=== PATIENT | female | born 1980 | race Caucasian/White ===

== ENCOUNTER 2019-12-26 17:35 | Emergency (ER) | payer OTHER ==
[~2019-12-26] VITALS: Ht 170.2 cm; Wt 86.0 kg
[~2019-12-26 17:35] MED LIST: BIRTH CONTROL PILL
--- NOTE | 2019-12-26 17:47 | PHYS DOC ---
Past History Past Medical History: Anxiety, Diabetes, Hypertension, Hypothyroid, Migraines, UTI, Other Past Surgical History: No Surgical History Alcohol Use: None Drug Use: None Adult General Chief Complaint Chief Complaint: NEURO SYMPTOMS/DEFICITS. .. " I ve been having problems... with this Lt. arm and neck.. numbness off and on the past week.. some what constant today.. now my whole hand seems numb..." HPI HPI Patient is a 39 year old female who presents with above hx and complaints of left arm numbness and weakness 1 week. Patient presents today with persistent constant feelings of numbness and weakness left arm. Patient states he's ever had a injury to her neck. Patient is right-hand dominant. Currently describes "like numbness from mid forearm into the entire hand. Patient does have a history of diabetes, hypertension, migraines, hypothyroidism, and anxiety. Patient states her migraines tend to be tension related. Patient states she's had somewhat of a tension headache all day. Patient did go an MRI in 2010 with no significant findings as per patient for similar presentations. Pt follows with Dr. Wakefield. Review of Systems Review of Systems Constitutional: Denies fever or chills [] Eyes: Denies change in visual acuity, redness, or eye pain [] HENT: Denies nasal congestion or sore throat []Enlarged thyroid. Respiratory: Denies cough or shortness of breath [] Cardiovascular: No additional information not addressed in HPI [] GI: Denies abdominal pain, nausea, vomiting, bloody stools or diarrhea [] : Denies dysuria or hematuria [] Musculoskeletal: Denies back pain or joint pain [] Integument: Denies rash or skin lesions [] Neurologic: Denies headache, focal weakness . Has complaints of Lt arm sensory changes [] . Endocrine: Denies polyuria or polydipsia [] All other systems were reviewed and found to be within normal limits, except as documented in this note. Family History Family History Non-contributory Current Medications Current Medications See Nursing for home meds. Allergies Allergies Allergies Coded Allergies Type Severity Reaction Last Updated Verified ciprofloxacin Adverse Reaction Intermediate Nausea and Vomiting 02/25/15 No lisinopril Adverse Reaction Intermediate Swelling 02/25/15 No Physical Exam Physical Exam Constitutional: no acute distress, non-toxic appearance. [] HENT: Normocephalic, atraumatic, bilateral external ears normal, oropharynx m oist, no oral exudates, nose normal. [] Eyes: PERRLA, EOMI, conjunctiva normal, no discharge. [] Neck: Normal range of motion, no tenderness, supple, no stridor. [] Cardiovascular:Heart rate regular rhythm, no murmur [] Lungs & Thorax: Bilateral breath sounds equal at apexes on auscultation [] Abdomen: Bowel sounds normal, soft, no tenderness, no masses, no pulsatile masses. [] Skin: Warm, dry, no erythema, no rash. [] Back: No tenderness, no CVA tenderness. [] Extremities: No tenderness, no cyanosis, no clubbing, ROM intact, no edema. [] Neurologic: Alert and oriented X 3, normal motor function, normal sensory function, Subjective complaints of Lt. hand numbness. (no focal reproducible deficits noted. )[]DTR + 2 patella and brachial. No drift. Distal Vibratory. NIHSS 1? Psychologic: Affect anxious, judgement normal, mood normal. [] EKG EKG I interpretation EKG shows a sinus rhythm at 75 beats per morning[] Radiology/Procedures Radiology/[place] [address] IMAGING REPORT Signed PATIENT: BELTRAN BRAUN ACCOUNT: [id number] : 1980 LOCATION: ER AGE: 39 SEX: F EXAM STATUS: REG ER ORD. PHYSICIAN: VEL SANDHU MD REASON: Stroke protocol, left sided head and neck pain radiating down arm PROCEDURE: CT HEAD AND CERVICAL SPINE WO STUDY: CT head and cervical spine without contrast INDICATION: Stroke protocol. Left-sided head and neck pain radiating down the arm. COMPARISON: CT head 02/25/2015 TECHNIQUE: Axial CT imaging through the head and cervical spine without the use of intravenous contrast. Sagittal and coronal reformats were obtained. One or more of the following individualized dose reduction techniques were utilized for this examination: 1. Automated exposure control 2. Adjustment of the mA and/or kV according to patient size 3. Use of iterative reconstruction technique. FINDINGS: CT head: No acute intracranial hemorrhage. No CT evidence for an acute cortical infarction. The deep mae nuclei are well delineated. No mass effect, midline shift or hydrocephalus. Unremarkable scalp and orbits. Intact calvarium. CT cervical spine: No acute fracture. Alignment is maintained across the vertebral bodies, facet joints and craniocervical junction. No significant bony encroachment on the central canal or neural foramina. Possible right thyroid lobe nodularity but no measurable nodule as well.. A few mildly prominent cervical chain lymph nodes are noted however these are more than likely reactive. No prevertebral edema. Unremarkable lung apices. IMPRESSION: CT head: 1. No acute intracranial abnormality by CT. No loss of mae-white matter differentiation to suggest an acute cortical infarction. CT cervical spine: 1. No acute osseous abnormality. No bony encroachment on the central canal or neural foramina. FOR INTERNAL CODING PURPOSES RESULT CODE: (C) The results of the study were discussed with Vel Sandhu by telephone on 12/26/2019 at 1840 hours. Electronically signed by: KEVIN RIVERA MD (12/26/2019 6:50 PM) [id number] DICTATED AND SIGNED BY: KEVIN RIVERA MD DATE: 12/26/191849 CC: VEL SANDHU MD; REA WAKEFIELD ~ [][place] [address] IMAGING REPORT Signed PATIENT: BELTRAN BRAUN ACCOUNT: [id number] : 1980 LOCATION: ER AGE: 39 SEX: F EXAM STATUS: REG ER ORD. PHYSICIAN: VEL SANDHU MD REASON: Palpitations, dyspnea PROCEDURE: CHEST PA & LATERAL Study: CHEST PA LATERAL Indication: Palpitations. Dyspnea. Comparison: 06/29/2014 Findings: Unremarkable lungs and cardiomediastinal silhouette. No free air seen under the diaphragm. Impression: No acute radiographic abnormality. Electronically signed by: KEVIN RIVERA MD (12/26/2019 6:54 PM) [id number] DICTATED AND SIGNED BY: KEVIN RIVERA MD DATE: 12/26/191853 CC: VEL SANDHU MD; REA WAKEFIELD ~ Course & Med Decision Making Course & Med Decision Making Pertinent Labs and Imaging studies reviewed. (See chart for details) Pt. to followup with primary. Take Tylenol and Ibuprofen for pain. Recommend pt. consider repeat MRI of neck. Must followup. Take a daily baby aspirin. Consider follow-up with neurology. Review elevated glucose and blood pressure with primary care. Wear clonidine patch until follow-up primary. Return if any concerns. Impression: 1. Suspect Cervical Neuralgia/ Neuritis 2. Elevated Glucose 283 3. Elevated CRP 5.1 4. Hypertension [] Dragon Disclaimer Dragon Disclaimer This electronic medical record was generated, in whole or in part, using a voice recognition dictation system. Departure Departure: Disposition: 01 HOME/RESIDENCE PRIOR TO ADM Condition: STABLE Referrals: REA WAKEFIELD (PCP) VEL SANDHU MD Dec 26, 2019 17:47
[2019-12-26] MEDS ORDERED: IV RINGERS SOLUTION,LACTATED 1,000 ML IV SCH (17:58)
--- NOTE | 2019-12-26 18:11 | EKG ---
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
[2019-12-26] MEDS ORDERED: LORazepam 1 MG TABLET PO ONE (18:15)
--- NOTE | 2019-12-26 18:53 | RAD ---
STUDY: CT head and cervical spine without contrast INDICATION: Stroke protocol. Left-sided head and neck pain radiating down the arm. COMPARISON: CT head 02/25/2015 TECHNIQUE: Axial CT imaging through the head and cervical spine without the use of intravenous contrast. Sagittal and coronal reformats were obtained. One or more of the following individualized dose reduction techniques were utilized for this examination: 1. Automated exposure control 2. Adjustment of the mA and/or kV according to patient size 3. Use of iterative reconstruction technique. FINDINGS: CT head: No acute intracranial hemorrhage. No CT evidence for an acute cortical infarction. The deep mae nuclei are well delineated. No mass effect, midline shift or hydrocephalus. Unremarkable scalp and orbits. Intact calvarium. CT cervical spine: No acute fracture. Alignment is maintained across the vertebral bodies, facet joints and craniocervical junction. No significant bony encroachment on the central canal or neural foramina. Possible right thyroid lobe nodularity but no measurable nodule as well.. A few mildly prominent cervical chain lymph nodes are noted however these are more than likely reactive. No prevertebral edema. Unremarkable lung apices. IMPRESSION: CT head: 1. No acute intracranial abnormality by CT. No loss of mae-white matter differentiation to suggest an acute cortical infarction. CT cervical spine: 1. No acute osseous abnormality. No bony encroachment on the central canal or neural foramina. FOR INTERNAL CODING PURPOSES RESULT CODE: (C) The results of the study were discussed with Vel Sandhu by telephone on 12/26/2019 at 1840 hours. Electronically signed by: KEVIN RIVERA MD (12/26/2019 6:50 PM) [id number]
--- NOTE | 2019-12-26 18:57 | RAD ---
Study: CHEST PA LATERAL Indication: Palpitations. Dyspnea. Comparison: 06/29/2014 Findings: Unremarkable lungs and cardiomediastinal silhouette. No free air seen under the diaphragm. Impression: No acute radiographic abnormality. Electronically signed by: KEVIN RIVERA MD (12/26/2019 6:54 PM) [id number]
[2019-12-26 19:16] LABS: BASO # 0.1 x10^3/uL (0.0-0.2); BASO % 1 % (0-3); CALCIUM 9.1 mg/dL (8.5-10.1); CREATININE 0.7 mg/dL (0.6-1.0); EOS # 0.4 x10^3/uL (0.0-0.7); EOS % 6 % (0-3); GFR 94.2; HEMATOCRIT 45.9 % (36.0-47.0); LYMPH # 3.4 x10^3/uL (1.0-4.8); LYMPH % 44 % (24-48); MEAN CORPUSCULAR HEMOGLOBIN 30 pg (25-35); MEAN CORPUSCULAR HGB CONC 33 g/dL (31-37); MEAN CORPUSCULAR VOLUME 90 fL (79-100); MONO # 0.5 x10^3/uL (0.0-1.1); MONO % 6 % (0-9); NEUT # 3.4 x10^3uL (1.8-7.7); NEUT % 44 % (31-73); PLATELET COUNT 250 x10^3/uL (140-400); POTASSIUM 3.8 mmol/L (3.5-5.1); RED BLOOD COUNT 5.09 x10^6/uL (3.50-5.40); RED CELL DISTRIBUTION WIDTH 13.2 % (11.5-14.5); WHITE BLOOD COUNT 7.7 x10^3/uL (4.0-11.0)
[2019-12-26 19:29] LABS: ALBUMIN 3.7 g/dL (3.4-5.0); C REACTIVE PROTEIN 5.1 mg/L (0-3.3); DIRECT BILIRUBIN 0.1 mg/dL (0.0-0.2); MAGNESIUM 1.8 mg/dL (1.8-2.4); TOTAL BILIRUBIN 0.2 mg/dL (0.2-1.0); TOTAL PROTEIN 7.7 g/dL (6.4-8.2)
[2019-12-26 20:01] LABS: BACTERIA,URINE 0 /HPF (0-FEW); BILIRUBIN,URINE NEG (NEG); CLARITY,URINE CLEAR; COLOR,URINE STRAW; GLUCOSE,URINE >=1000 mg/dL (NEG); NITRITE,URINE NEG (NEG); RBC,URINE 0 /HPF (0-2); SQUAMOUS EPITHELIAL CELL,UR OCC /LPF; UROBILINOGEN,URINE 0.2 mg/dL (0.2 mg/dL); WBC,URINE 0 /HPF (0-4)
[2019-12-26 20:02] LABS: BARBITURATES POS (NEG); BENZODIAZEPINES NEG (NEG); COCAINE NEG (NEG); METHADONE NEG (NEG); OPIATES NEG (NEG); PHENCYCLIDINE NEG (NEG)
[2019-12-26 20:03] LABS: CANNABINOIDS NEG (NEG)
[2019-12-26 20:06] LABS: AMPHETAMINE/METHAMPHETAMINE NEG (NEG)
[2019-12-26] MEDS ORDERED: cloNIDine TTS-2 1 PATCH PATCH TD ONE (20:15)
[2019-12-26] MEDS ORDERED: cloNIDine HCL 0.1 MG TABLET PO ONE (20:15)
[2019-12-26] MEDS ORDERED: ASPIRIN 325 MG TABLET PO ONE (20:15)
[2019-12-26 20:48] VITALS: BP 132/83
[2019-12-26 20:56] LABS: SEDIMENTATION RATE 7 (0-25)
== END 2019-12-26 20:54 | disposition home or self-care (01) ==
LOC: ER 17:35
DX: I10 Essential (primary) hypertension (principal); R20.2 Paresthesia of skin; R53.1 Weakness; R79.89 Other specified abnormal findings of blood chemistry; E11.65 Type 2 diabetes mellitus with hyperglycemia; E03.9 Hypothyroidism, unspecified
CPT/HCPCS: 36415; 70450; 71046; 72125; 80048; 80076; 80307; 81001; 81025; 82550; 83690; 83735; 83880; 84443; 84484; 85025; 85379; 85610; 85651; 85730; 86140; 93005; 99285; J7120